=== PATIENT | male | born 1985 | race Caucasian/White ===

== ENCOUNTER 2020-10-21 21:39 | Emergency (ER) | payer OTHER ==
[~2020-10-21] VITALS: Ht 175.3 cm; Wt 86.2 kg
[~2020-10-21 21:39] MED LIST: DEXILANT PO
[2020-10-21] MEDS ORDERED: CASIRIVIMAB/IMDEVIMAB 600 MG INJ IV ONE (22:15)
[2020-10-21] MEDS ORDERED: CASIRIVIMAB/IMDEVIMAB 600 MG in SODIUM CHLORIDE 0.9% 100 ML IV ONE (22:15)
== END 2020-10-22 00:19 | disposition home or self-care (01) ==
LOC: ER 22:00
DX: R50.9 Fever, unspecified (principal); R05 Cough; U07.1 COVID-19; I10 Essential (primary) hypertension
CPT/HCPCS: 99283